=== PATIENT | female | born 1990 | race Caucasian/White ===

== ENCOUNTER → 2016-10-07 | Outpatient (CLI) | payer OTHER ==
[2016-10-07 10:55] LABS: Basophils % (A) 1 %; CH 27.5; CHCM 33.1; Eosinophils # (A) 0.1 k/uL (0-0.7); Eosinophils % (A) 1 %; HCT 46.5 % (34.0-46.0); HDW 2.27; HGB 15.2 gm/dL (11.4-16.0); Luc # (Auto) 0.21; Luc % (Auto) 3; Lymphocytes # (A) 1.8 k/uL (1.0-4.8); Lymphocytes % (A) 27 %; MCH 27.4 pg (25.0-35.0); MCHC 32.7 g/dL (31.0-37.0); MCV 83.7 fL (80.0-100.0); Mean Platelet Volume 8.1; Monocytes # (A) 0.6 k/uL (0-1.0); Monocytes % (A) 9 %; Neutrophils # (A) 3.9 k/uL (1.3-7.7); Neutrophils % (A) 59 %; RBC 5.56 m/uL (3.80-5.40); RDW 12.5 % (11.5-15.5); WBC 6.6 k/uL (3.8-10.6); WBC (Perox) 6.61
[2016-10-07 11:07] LABS: ALT 21 U/L (9-52); AST 17 U/L (14-36); Alkaline Phosphatase 36 U/L (38-126); Anion Gap 8 mmol/L; Blood Urea Nitrogen 8 mg/dL (7-17); Calcium 9.4 mg/dL (8.4-10.2); Carbon Dioxide 27 mmol/L (22-30); Chloride 106 mmol/L (98-107); Creatine Kinase 40 U/L (30-135); Glucose 104 mg/dL (74-99); Non-African American GFR(MDRD) >60 (>60 ml/min/1.73 sqM); Potassium 4.6 mmol/L (3.5-5.1); Sodium 141 mmol/L (137-145); Total Bilirubin 0.5 mg/dL (0.2-1.3); Total Protein 7.2 g/dL (6.3-8.2)
[2016-10-07 13:16] LABS: Erythrocyte Sedimentation Rate 5 mm/hr (0-20)
== END ==
LOC: LABWHC1 10:27
PROVIDERS: ATTEND Internal Medicine Critical Care Medicine
DX: D86.9 Sarcoidosis, unspecified (principal)
CPT/HCPCS: 36415; 80053; 82164; 82550; 85025; 85652

== ENCOUNTER 2018-03-05 15:03 | Emergency (ER) | payer OTHER ==
[2018-03-05 15:08] VITALS: BP 117/76; PULSE 67; RESP 16; TEMP 97.3
--- NOTE | 2018-03-05 15:43 | ED ---
General Adult HPI - General Chief complaint: ENT Stated complaint: Sore throat Time Seen by Provider: 03/05/18 15:22 Source: patient, RN notes reviewed Mode of arrival: ambulatory Limitations: no limitations - History of Present Illness Initial comments: 27-year-old female presents to the emergency department for a chief complaint of sore throat 2 days. Patient states it is painful to swallow. She denies any difficulty swallowing or eating/drinking. Patient admits to postnasal drip but denies any nasal congestion. Patient denies any ear pain or headaches. Patient does admit to slight cough. She states it is an intermittent, dry cough and denies coughing up mucus. She does have a history of sarcoidosis. Patient is a smoker. She denies history of asthma. Patient denies any shortness of breath. Patient denies any fevers or chills at home. Patient has no other complaints at this time including shortness of breath, chest pain, abdominal pain, nausea or vomiting, headache, or visual changes. - Related Data Home Medications Medication Instructions Recorded Confirmed Ibuprofen [Motrin Ib] 600 - 800 mg PO Q6H PRN 03/05/18 03/05/18 Previous Rx's Medication Instructions Recorded guaiFENesin [Mucinex] 600 mg PO Q12H PRN #20 tab.er.12h 03/05/18 Allergies Allergy/AdvReac Type Severity Reaction Status Date / Time latex Allergy Rash/Hives Verified 03/05/18 15:47 Penicillins Allergy Swelling Verified 03/05/18 15:47 lidocaine AdvReac Rapid Verified 03/05/18 15:47 Heart Rate Review of Systems ROS Statement: Those systems with pertinent positive or pertinent negative responses have been documented in the HPI. ROS Other: All systems not noted in ROS Statement are negative. Past Medical History Past Medical History: Asthma, GERD/Reflux, Osteoarthritis (OA), Renal Disease Additional Past Medical History / Comment(s): sarcoidosis, epigastric pain & nausea History of Any Multi-Drug Resistant Organisms: None Reported Past Surgical History: Section Additional Past Surgical History / Comment(s): lymph node biopsy, colonoscopy Past Anesthesia/Blood Transfusion Reactions: No Reported Reaction Past Psychological History: Anxiety Smoking Status: Current every day smoker Past Alcohol Use History: Occasional Past Drug Use History: None Reported General Exam Limitations: no limitations General appearance: alert, in no apparent distress (Patient is well-appearing, sitting up in chair in hallway. She is pleasant and cooperative.) Head exam: Present: atraumatic, normocephalic, normal inspection Eye exam: Present: normal appearance, PERRL, EOMI. Absent: scleral icterus, conjunctival injection, periorbital swelling, periorbital tenderness ENT exam: Present: normal exam, mucous membranes moist, TM's normal bilaterally (non erythematous), normal external ear exam. Absent: normal oropharynx (non erythematous oropharynx, no tonsillar exudates noted bilat, uvula midline, mild nasal drainage noted in throat) Neck exam: Present: normal inspection, full ROM, lymphadenopathy (mild tender anterior cerivcal LN noted). Absent: tenderness, meningismus Respiratory exam: Present: normal lung sounds bilaterally. Absent: respiratory distress, wheezes, rales, rhonchi, stridor Cardiovascular Exam: Present: regular rate, normal rhythm, normal heart sounds. Absent: systolic murmur, diastolic murmur, rubs, gallop, clicks Extremities exam: Present: full ROM (moving all extremities without difficulty.) Neurological exam: Present: alert, oriented X3, CN II-XII intact, normal gait, other (speech normal). Absent: motor sensory deficit (no gross motor sensory deficit) Psychiatric exam: Present: normal affect, normal mood Skin exam: Present: warm, dry, intact, normal color. Absent: rash Course Vital Signs 03/05/18 15:06 Temperature 97.3 F L Pulse Rate 67 Respiratory 16 Rate Blood Pressure 117/76 O2 Sat by Pulse 100 Oximetry Medical Decision Making - Medical Decision Making 27-year-old female since to the emergency department for a chief complaint of sore throat 2 days. Patient states it is painful to swallow but she does not have any difficulty swallowing solids or liquids. No fevers or chills at home. Patient admits to postnasal drip, denies nasal congestion. Patient admits to a mild intermittent cough. She does have a history of sarcoidosis and is a smoker. I did recommend a chest x-ray to rule out pneumonia as patient is a smoker with a cough. Patient refuses x-ray at this time as she states cough is intermittent and nonproductive. She states she would rather return to the emergency department for an x-ray to rule out pneumonia if symptoms worsen. On exam lungs are clear to auscultation bilaterally. Patient has a non- erythematous oropharynx without petechiae or tonsillar exudates. Uvula midline. Postnasal drainage noted. Strep was negative. Culture will be sent. Discussed patient likely has a viral infection as she has had symptoms for 2 days without fever. Sore throat could be due to postnasal drip so patient will be given Mucinex. Patient denies any chance of . Patient aware to return to the emergency department for a chest x-ray if symptoms worsen. She will follow up with primary care in 1-2 days. - Lab Data Lab Results 03/05/18 Range/Units 15:37 Group A Strep Rapid Negative (Negative) Disposition Clinical Impression: Sore throat Disposition: HOME SELF-CARE Condition: Good Instructions: Strep Throat (ED) Additional Instructions: Please take Mucinex as directed for congestion. Please follow-up with primary care in 1-2 days. Please return to the emergency department if you have any worsening symptoms such as increased cough, fever, or any other additional concerns. Prescriptions: guaiFENesin [Mucinex] 600 mg PO Q12H PRN #20 tab.er.12h PRN Reason: Congestion Is patient prescribed a controlled substance at d/c from ED?: No Referrals: Noah Stout DO [Primary Care Provider] - 1-2 days Time of Disposition: 16:14
== END 2018-03-05 16:20 | disposition home or self-care (01) ==
LOC: EC 15:03
DX: J02.9 Acute pharyngitis, unspecified (principal); R09.82 Postnasal drip; F17.200 Nicotine dependence, unspecified, uncomplicated; Z88.0 Allergy status to penicillin; Z88.4 Allergy status to anesthetic agent; Z91.040 Latex allergy status
CPT/HCPCS: 87081; 87430; 99283

== ENCOUNTER → 2019-11-16 | Outpatient (CLI) | payer OTHER ==
[2019-11-16 15:41] LABS: Basophils % (A) 0 %; Eosinophils # (A) 0.1 k/uL (0-0.7); Eosinophils % (A) 1 %; HCT 43.9 % (34.0-46.0); HGB 13.7 gm/dL (11.4-16.0); Lymphocytes # (A) 2.5 k/uL (1.0-4.8); Lymphocytes % (A) 29 %; MCH 26.7 pg (25.0-35.0); MCHC 31.1 g/dL (31.0-37.0); MCV 85.8 fL (80.0-100.0); Mean Platelet Volume 9.3; Monocytes # (A) 0.5 k/uL (0-1.0); Monocytes % (A) 6 %; Neutrophils # (A) 5.5 k/uL (1.3-7.7); Neutrophils % (A) 63 %; Platelet Count 158 k/uL (150-450); RBC 5.11 m/uL (3.80-5.40); RDW 12.9 % (11.5-15.5); WBC 8.7 k/uL (3.8-10.6)
[2019-11-16 18:43] LABS: Erythrocyte Sedimentation Rate 2 mm/hr (0-20)
[2019-11-17 00:49] LABS: T4, Free (Free Thyroxine) 1.2 ng/dL (0.80-1.80)
[2019-11-17 01:00] LABS: African American GFR (CKD) 133.8 (60.0-200.0); Albumin 4.3 g/dL (3.80-4.90); Albumin/Globulin Ratio 2.15 (1.60-3.17); Anion Gap 7.3 mmol/L (4.00-12.00); BUN/Creat Ratio 18.57 Ratio (12.00-20.00); Calcium 9.1 mg/dL (8.7-10.3); Carbon Dioxide 24.7 mmol/L (21.6-31.8); Non-African American GFR(CKD) 115.4 (60.0-200.0); Total Bilirubin 0.6 mg/dL (0.2-1.2); Total Protein 6.3 g/dL (6.2-8.2)
== END | disposition home or self-care (01) ==
LOC: LABWHC1 15:00
PROVIDERS: ATTEND Internal Medicine Critical Care Medicine
DX: D86.9 Sarcoidosis, unspecified (principal)
CPT/HCPCS: 36415; 80053; 82164; 82550; 84439; 84443; 85025; 85652

== ENCOUNTER → 2020-10-21 | Outpatient (CLI) | payer OTHER ==
--- NOTE | 2020-10-21 16:02 | US ---
EXAMINATION TYPE: US kidneys/renal and bladder DATE OF EXAM: 10/21/2020 COMPARISON: NONE CLINICAL HISTORY: D86.0 Sarcoidosis of lung. EXAM MEASUREMENTS: Right Kidney: 11.0 x 3.4 x 3.9 cm Left Kidney: 10.7 x 4.5 x 3.7 cm Right Kidney: thin cortex mid/lower pole Left Kidney: no evidence of hydronephrosis Bladder: appears wnl Bilateral Jets seen: no IMPRESSION: 1. No acute changes. 2. Some thinning of the right kidney cortex could suggest some developing chronic renal failure or pr ior infarct.
== END | disposition home or self-care (01) ==
LOC: RADUSWWP 15:16
PROVIDERS: ATTEND Internal Medicine Nephrology
DX: D86.0 Sarcoidosis of lung (principal)
CPT/HCPCS: 76770

== ENCOUNTER 2022-06-23 14:33 | Emergency (ER) | payer BC, OTHER ==
--- NOTE | 2022-06-23 14:37 | ED ---
Upper Extremity HPI <Modesta Hassan - Last Filed: 06/23/22 16:57> <Stephon Hanson - Last Filed: 06/23/22 18:33> <Rolo Hayes - Last Filed: 06/23/22 22:48> - General Chief Complaint: Extremity Injury, Upper Stated Complaint: rt wrist injury - History of Present Illness Initial Comments: Patient is a 31-year-old female presenting to the emergency room with right wrist pain after slipping and falling catching herself with her right wrist. She immediately had pain in her right wrist with deformity and range of motion impairment along with swelling to the anterior aspect of her hand. She denies any head trauma or trauma to any other extremity. She is not on blood thinners. Denies any loss of consciousness prior to or after the fall. She denies any dizziness or headache. She is past medical history significant for asthma, sarcoidosis, renal impairment and GERD. (Modesta Hassan) - Related Data Home Medications Medication Instructions Recorded Confirmed Ibuprofen [Motrin Ib] 600 - 800 mg PO Q6H PRN 03/05/18 03/05/18 Previous Rx's Medication Instructions Recorded guaiFENesin [Mucinex] 600 mg PO Q12H PRN #20 tab.er.12h 03/05/18 traMADol HCl [Ultram] 50 mg PO Q8HR PRN 3 Days #9 tab 06/23/22 Allergies Allergy/AdvReac Type Severity Reaction Status Date / Time latex Allergy Rash/Hives Verified 06/23/22 15:10 Penicillins Allergy Swelling Verified 06/23/22 15:10 lidocaine AdvReac Rapid Verified 06/23/22 15:10 Heart Rate Review of Systems ROS Other: All systems not noted in ROS Statement are negative. <Modesta Hassan - Last Filed: 06/23/22 16:57> ROS Other: All systems not noted in ROS Statement are negative. <Stephon Hanson - Last Filed: 06/23/22 18:33> ROS Other: All systems not noted in ROS Statement are negative. <Rolo Hayes - Last Filed: 06/23/22 22:48> ROS Statement: Those systems with pertinent positive or pertinent negative responses have been documented in the HPI. Past Medical History Past Medical History: Asthma, GERD/Reflux, Osteoarthritis (OA), Renal Disease Additional Past Medical History / Comment(s): sarcoidosis, epigastric pain & nausea History of Any Multi-Drug Resistant Organisms: None Reported Past Surgical History: Section Additional Past Surgical History / Comment(s): lymph node biopsy, colonoscopy Past Anesthesia/Blood Transfusion Reactions: No Reported Reaction Past Psychological History: Anxiety Past Alcohol Use History: Occasional Past Drug Use History: None Reported <Modesta Hassan - Last Filed: 06/23/22 16:57> General Exam <Modesta Hassan - Last Filed: 06/23/22 16:57> - General Exam Comments Initial Comments: GENERAL: No acute distress, well developed, well nourished. HEENT: Normocephalic, atraumatic. Pupils equal, round, reactive to light. Moist mucous membranes. LUNGS: No respiratory distress or use of accessory muscles. HEART: Regular rate.. ABDOMEN: Non-distended. BACK: Normal inspection. EXTREMITIES: Right wrist with deformity, swelling and tenderness with range of motion impairment good capillary refill and +2 radial pulse. NEUROLOGIC: Alert & oriented x 3. CN II-XII grossly intact. PSYCHIATRIC: Normal affect and behavior. DERMATOLOGIC: Skin intact, without rashes or lesions noted. (Modesta Hassan) Course Vital Signs 06/23/22 06/23/22 06/23/22 15:07 16:41 16:45 Temperature 97.9 F Pulse Rate 96 106 H 77 Respiratory 16 16 16 Rate Blood Pressure 111/55 121/97 121/75 O2 Sat by Pulse 98 99 98 Oximetry 06/23/22 06/23/22 06/23/22 16:50 16:55 17:10 Temperature Pulse Rate 66 98 62 Respiratory 14 14 16 Rate Blood Pressure 120/80 123/69 118/80 O2 Sat by Pulse 98 98 98 Oximetry 06/23/22 06/23/22 06/23/22 17:25 17:40 17:55 Temperature Pulse Rate 60 62 63 Respiratory 16 16 16 Rate Blood Pressure 118/72 115/67 108/65 O2 Sat by Pulse 98 98 98 Oximetry 06/23/22 06/23/22 06/23/22 18:25 18:55 20:18 Temperature 98.0 F Pulse Rate 60 68 64 Respiratory 16 16 16 Rate Blood Pressure 108/71 113/73 118/80 O2 Sat by Pulse 99 99 98 Oximetry Procedures - Procedural Sedation *Procedural Sedation Start Time: 16:41 *Procedural Sedation Stop Time: 17:12 *Indications: fracture/dislocation reduction *Previous Adverse Reaction to Anesthesia/Sedation?: No * Testing Complete?: Yes *ASA Class: I *Mallampati Airway Score: 1 *Time of Last PO Intake: 12:00 Preparation: monitor technician applied, pulse oximeter, capnometry used, supplemental O2 applied, suction/airway equipment at bedside, IV secured IV Propofol Dose (mgs): 200 Complications: none Patient Tolerated Procedure: well <Stephon Hanson - Last Filed: 06/23/22 18:33> Disposition Is patient prescribed a controlled substance at d/c from ED?: No <Modesta Hassan - Last Filed: 06/23/22 16:57> <Stephon Hanson - Last Filed: 06/23/22 18:33> Is patient prescribed a controlled substance at d/c from ED?: Yes When asked, does pt state using other controlled substances?: Yes If prescribed controlled substance>3 days was MAPS reviewed?: Prescribed <3 Days If opioid is for acute pain is fill amount 7 days or less?: Yes Time of Disposition: 20:00 <Rolo Hayes - Last Filed: 06/23/22 22:48> Clinical Impression: Fracture, radius, Fracture of wrist Disposition: HOME SELF-CARE Instructions (If sedation given, give patient instructions): Wrist Fracture in Adults (ED), Moderate Sedation (ED), Procedural Sedation (ED) Additional Instructions: Please maintain cast placement. Follow-up with orthopedic provider. Conscious sedation was given today is recommended that he donate any major decisions and do not drive an automobile for the remainder of the day. Please utilize ibuprofen or Tylenol [id number] as needed for pain. Please return to the Emergency Department if symptoms worsen or any other concerns. Elevate right upper extremity Keep cast clean dry and intact. Do not remove. Avoid rigorous use of right upper extremity. May do small manipulation less than 2 pounds with right hand Prescriptions: traMADol HCl [Ultram] 50 mg PO Q8HR PRN 3 Days #9 tab PRN Reason: Severe Pain (Scale 7 To 10) Referrals: Cihnedu Solis MD [Primary Care Provider] - 1-2 days Renata La DO [Doctor of Osteopathic Medicine] - 1-2 days
--- NOTE | 2022-06-23 15:18 | XR ---
EXAMINATION TYPE: XR wrist complete RT DATE OF EXAM: 06/23/2022 COMPARISON: None HISTORY: Fall, pain TECHNIQUE: One view right wrist FINDINGS: There is a transverse fracture of the distal metaphyseal radius. There may be some impactio n of the radius on the distal portion of the fracture fragment. There is dorsal angulation of the dis marcie fracture fragment. No additional fractures are evident. Joint spaces are otherwise preserved. Soft tissue swelling is pr esent. Follow up exams can be performed 710 days acute trauma for continued or unaccounted for pain. Nuclea r medicine bone scan could be performed if there is clinical suspicion for scaphoid fracture. IMPRESSION: 1. Impacted distal metaphyseal radial fracture with dorsal angulation of the distal fracture fragmen t. Overlying soft tissue swelling is present.
[2022-06-23] MEDS ORDERED: MORPHINE SULFATE 2 MG/ML SYRINGE IM STA (15:47)
[2022-06-23] MEDS ORDERED: PROPOFOL 10 MG/ML 20 ML VIAL IV ONE ×2 (16:21→16:42)
[2022-06-23] MEDS ORDERED: MORPHINE SULFATE 4 MG/ML SYRINGE IVP STA (17:17)
--- NOTE | 2022-06-23 17:18 | P.CNOR ---
History of Present Illness - [facility] Consult date: 06/23/22 Consult reason: fracture History of present illness: Patient has very pleasant 31-year-old female who seen and examined in the emergency room at bedside. Patient is right-hand dominant Thao active female who was coming down a flight of stairs and fell onto her rear end and to her outstretched right arm. She had sudden acute pain at her right wrist. She denies loss of consciousness. She denies other injuries. She denies neck pain denies hip pain denies leg pain. Her only points of pain or at her right wrist. She denies numbness tingling. She is normally right hand dominant and has never had any issues with her right arm in the past. She denies any history of any other fractures. She denies any other current injuries. She admits to history of sarcoidosis and asthma. 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 Review of Systems As per operative note. Denies any chest pain short of breath. Denies a nausea vomiting or abdominal pain. Denies any particular weakness. She denies prior problems with her right arm. Denies any other pains. Denies any neck pain. Past Medical History Past Medical History: Asthma, GERD/Reflux, Osteoarthritis (OA), Renal Disease Additional Past Medical History / Comment(s): sarcoidosis, epigastric pain & nausea History of Any Multi-Drug Resistant Organisms: None Reported Past Surgical History: Section Additional Past Surgical History / Comment(s): lymph node biopsy, colonoscopy Past Anesthesia/Blood Transfusion Reactions: No Reported Reaction Past Psychological History: Anxiety Past Alcohol Use History: Occasional Past Drug Use History: None Reported Medications and Allergies Home Medications Medication Instructions Recorded Confirmed Type Ibuprofen [Motrin Ib] 600 - 800 mg PO Q6H PRN 03/05/18 03/05/18 History guaiFENesin [Mucinex] 600 mg PO Q12H PRN #20 tab.er.12h 03/05/18 Rx traMADol HCl [Ultram] 50 mg PO Q8HR PRN 3 Days #9 tab 06/23/22 Rx Allergies Allergy/AdvReac Type Severity Reaction Status Date / Time latex Allergy Rash/Hives Verified 06/23/22 15:10 Penicillins Allergy Swelling Verified 06/23/22 15:10 lidocaine AdvReac Rapid Verified 06/23/22 15:10 Heart Rate Physical Examination Osteopathic Statement: *. No significant issues noted on an osteopathic structural exam other than those noted in the History and Physical/Consult. - Wrist & Hand right Location of pain: dorsal wrist (At her right wrist there is no open wounds lacerations or abrasions. She has obvious dinner fork deformity. She is tender to palpation at her wrist. She has sensation intact in her fingers. She has good motion in her fingers. Capillary refill less than 2 seconds. Compartments are soft througho), volar wrist (Compartments are soft throughout. No pain at her elbow or shoulder. Her left upper extremity and bilateral lower extremity no pain with active and passive range of motion. Neck and back nontender to palpation range of motion. HEENT atraumatic) Results - Diagnostic results Wrist/Hand x-ray: report reviewed, image reviewed (X-rays of right wrist show obvious deformity with dorsal angulation about 60 with shortening and about 50% displacement there is some lucency around the waist of the scaphoid) Assessment and Plan Assessment: Acute traumatic right wrist distal radius fracture with displacement and angulation and comminution , status post fall Lucency at the right scaphoid Right wrist pain due to fracture and fall without other evidence of injury History of sarcoidosis Plan: Acute traumatic right wrist distal radius fracture with displacement and angulation and comminution , status post fall Lucency at the right scaphoid Right wrist pain due to fracture and fall without other evidence of injury History of sarcoidosis The patient has a new fracture at her distal radius with displacement and some mild comminution area and is dorsally angulate and shortened. There is no evidence of any open lacerations or abrasions and she has a closed neurovascularly intact this radius fracture. There is some lucency at her scaphoid as well. I think that she can do well with closed reduction here in the emergency room with conscious sedation. She may need further treatment or intervention with surgical stabilization if the fracture does not hold her if there is recurrent displacement after closed reduction. I discussed this with her at length. I discussed the risk of her injury as well as the fact that t here are various treatment options ranging from close to surgical intervention. We discussed the risk of constipation and closed treatment here in the emergency room today I answered her questions best my ability and she agrees to proceed. PROCEDURE NOTE In the emergency room today with the emergency room physician performing conscious sedation with propofol and monitoring was respiratory and nursing at bedside we're able to provide patient with conscious sedation after she signed informed consent. She had her airway and C-spine guarded and protected the entire time. When she was sedated as able perform gentle closed reduction technique and her distal radius on the right side. I was able to admitted late the fragments in good alignment and position. I placed a well-padded well mol ded short arm cast intact and postreduction x-rays were taken which showed excellent alignment position of the fracture with good return of length and radial inclination and angulation. The patient had good circulation her hand and fingers. She woke up well and she had good capillary refill and motion in her hands and fingers having tolerated the procedure well. The patient will be able to be discharged home when she is stable from the emergency room post conscious sedation. We'll plan to see her back closely in the next few days for recheck evaluation and follow-up. We did discuss the amber cency at her scaphoid and she will obtain a computed tomography scan of her wrist prior to discharge today with an further evaluate the scaphoid and the articular surface of the distal radius as well. I discussed this with the house staff and emergency room physician and they are all in agreement. Time with Patient: Greater than 30 (Consultation and procedure performed in the emergency room)
--- NOTE | 2022-06-23 17:18 | XR ---
EXAMINATION TYPE: XR wrist limited RT DATE OF EXAM: 06/23/2022 COMPARISON: NONE HISTORY: Post reduction TECHNIQUE: 2 views FINDINGS: Images through the cast show anatomic position of the transverse fracture of the distal rad ius. Carpal bones are intact. IMPRESSION: Anatomic reduction. No complicating process seen.
[2022-06-23 17:56] VITALS: RESP 16
[2022-06-23] MEDS ORDERED: ACET/COD 300 MG/30 MG STARTER PACK 6 TAB BTL PO STA (19:11)
[2022-06-23] MEDS ORDERED: MORPHINE SULFATE 4 MG/ML SYRINGE IM STA (20:04)
[2022-06-23 20:20] VITALS: BP 118/80; PULSE 64; TEMP 98
--- NOTE | 2022-06-23 20:35 | CT ---
EXAMINATION TYPE: CT wrist RT wo con DATE OF EXAM: 06/23/2022 COMPARISON: Right wrist x-rays earlier today HISTORY: Wrist Fx after pt fell down a flight of stairs. CT DLP: 252.5 mGycm Automated exposure control for dose reduction was used. FINDINGS: Overlying fiberglass cast material is now present. There is acute comminuted fracture of the distal r adial meta-epiphysis confirmed with several small fracture fragments seen best on axial images and in tra-articular extension of fracture noted seen best on sagittal images. No intra-articular bony fragm ents identified. Adjacent ulna is intact. The carpal joint spaces are preserved. Focal mild/moderate soft tissue swell ing at level of distal radius is noted. IMPRESSION: As above.
== END 2022-06-23 20:20 | disposition home or self-care (01) ==
LOC: EC 14:33
DX: S52.501A Unspecified fracture of the lower end of right radius, initial encounter for closed fracture (principal); J45.909 Unspecified asthma, uncomplicated; M19.90 Unspecified osteoarthritis, unspecified site; F41.9 Anxiety disorder, unspecified; Z88.0 Allergy status to penicillin; Z91.040 Latex allergy status; Z88.4 Allergy status to anesthetic agent; Z79.899 Other long term (current) drug therapy; W01.0XXA Fall on same level from slipping, tripping and stumbling without subsequent striking against object, initial encounter
CPT/HCPCS: 73100; 73110; 73200; 99284; 96374; 96372 ×2; 25605; 99152; 99153; J2270 ×2; J2704

== ENCOUNTER 2022-06-28 21:52 | Emergency (ER) | payer BC, OTHER ==
--- NOTE | 2022-06-28 22:09 | ED ---
Head Injury HPI - General Stated complaint: Fall, Head Injury - History of Present Illness Initial comments: Patient is a 31-year-old female who presents to the emergency department with a chief complaint of bump on head. Patient fell 5 days ago and broke her wrist. Patient states due to whiplash she didn't hit her head. She did not lose consciousness. No blood thinners use. No altered mental status, nausea, vomiting since the injury. Patient presents today with concern that she has a bump on the back left of her head. States it is somewhat tender to the touch. - Related Data Home Medications Medication Instructions Recorded Confirmed Ibuprofen [Motrin Ib] 600 - 800 mg PO Q6H PRN 03/05/18 03/05/18 Previous Rx's Medication Instructions Recorded guaiFENesin [Mucinex] 600 mg PO Q12H PRN #20 tab.er.12h 03/05/18 traMADol HCl [Ultram] 50 mg PO Q8HR PRN 3 Days #9 tab 06/23/22 Allergies/Adverse reactions: Allergies Allergy/AdvReac Type Severity Reaction Status Date / Time latex Allergy Rash/Hives Verified 06/23/22 15:10 Penicillins Allergy Swelling Verified 06/23/22 15:10 lidocaine AdvReac Rapid Verified 06/23/22 15:10 Heart Rate Review of Systems ROS Statement: Those systems with pertinent positive or pertinent negative responses have been documented in the HPI. ROS Other: All systems not noted in ROS Statement are negative. Past Medical History Past Medical History: Asthma, GERD/Reflux, Osteoarthritis (OA), Renal Disease Additional Past Medical History / Comment(s): sarcoidosis, epigastric pain & nausea History of Any Multi-Drug Resistant Organisms: None Reported Past Surgical History: Section Additional Past Surgical History / Comment(s): lymph node biopsy, colonoscopy Past Anesthesia/Blood Transfusion Reactions: No Reported Reaction Past Psychological History: Anxiety Past Alcohol Use History: Occasional Past Drug Use History: None Reported General Exam General appearance: alert, in no apparent distress Head exam: Present: normocephalic. Absent: normal inspection (small hemtoma left lower occipital region ) Respiratory exam: Present: normal lung sounds bilaterally. Absent: respiratory distress, wheezes, rales, rhonchi, stridor Cardiovascular Exam: Present: regular rate, normal rhythm, normal heart sounds. Absent: systolic murmur, diastolic murmur, rubs, gallop, clicks Neurological exam: Present: alert, oriented X3, CN II-XII intact Psychiatric exam: Present: normal affect, normal mood Skin exam: Present: warm, dry, intact, normal color. Absent: rash Course Vital Signs 06/28/22 22:13 Temperature 98 F Pulse Rate 83 Respiratory 16 Rate Blood Pressure 121/75 O2 Sat by Pulse 98 Oximetry Medical Decision Making - Medical Decision Making Was pt. sent in by a medical professional or institution (JOSE Camacho, BUILDING SERVICES TECHNICIAN, urgent care, hospital, or custodial...) When possible be specific @ -[No] Did you speak to anyone other than the patient for history (EMS, parent, family, police, friend...)? What history was obtained from this source @ -[No] Did you review nursing and triage notes (agree or disagree)? Why? @ -[I reviewed and agree with nursing and triage notes] Were old charts reviewed (outside hosp., previous admission, EMS record, old EKG, old radiological studies, urgent care reports/EKG's, custodial records)? Report findings @ -[No old charts were reviewed] Differential Diagnosis (chest pain, altered mental status, abdominal pain women, abdominal pain men, vaginal bleeding, weakness, fever, dyspnea, syncope, headache, dizziness, GI bleed, back pain, seizure, CVA, palpatations, mental health)? @ -skull fracture, soft tissue injury, hematoma EKG interpreted by me (3pts min.). @ -[As above] X-rays interpreted by me (1pt min.). @ -[None done] CT interpreted by me (1pt min.). @ -[None done] U/S interpreted by me (1pt. min.). @ -[None done] What testing was considered but not performed or refused? (CT, X-rays, U/S, labs)? Why? @ -[None] What meds were considered but not given or refused? Why? @ -[None] Did you discuss the management of the patient with other professionals (professionals i.e. JOSE Camacho, BUILDING SERVICES TECHNICIAN, lab, RT, psych nurse, geriatric social work professor, c.o.d. biller, teacher, commercial account officer, showcase maker)? Give summary @ -[No] Was smoking cessation discussed for >3mins.? @ -[No] Was critical care preformed (if so, how long)? @ -[No] Were there social determinants of health that impacted care today? How? (Homelessness, low income, unemployed, alcoholism, drug addiction, transportation, low edu. Level, literacy, decrease access to med. care, fdc, rehab)? @ -[No] Was there de-escalation of care discussed even if they declined (Discuss DNR or withdrawal of care, Hospice)? DNR status @ -[No] What co-morbidities impacted this encounter? (DM, HTN, Smoking, COPD, CAD, Cancer, CVA, ARF, Chemo, Hep., AIDS, mental health diagnosis, sleep apnea, morbid obesity)? @ -[None] Was patient admitted / discharged? Hospital course, mention meds given and route, prescriptions, significant lab abnormalities, going to OR and other pertinent info. @ -This is a 31-year-old female presenting 5 days after fall with concern for bump on her head. Patient has small hematoma of the left occipital scalp. Patient educated and reassured. Undiagnosed new problem with uncertain prognosis? @ -[No] Drug Therapy requiring intensive monitoring for toxicity (Heparin, Nitro, Insulin, Cardizem)? @ -[No] Were any procedures done? @ -[No] Diagnosis/symptom? @ -Hematoma Acute, or Chronic, or Acute on Chronic? @ Acute Uncomplicated (without systemic symptoms) or Complicated (systemic symptoms)? @ -[default] Side effects of treatment? @ -[No] Exacerbation, Progression, or Severe Exacerbation? @ -[No] Poses a threat to life or bodily function? How? (Chest pain, USA, LA, pneumonia, PE, COPD, DKA, ARF, appy, cholecystitis, CVA, Diverticulitis, Homicidal, Suicidal, threat to staff... and all critical care pts) @ -[No] Dr. Hanson is my attending Disposition Clinical Impression: Hematoma, Fall Disposition: HOME SELF-CARE Condition: Good Instructions (If sedation given, give patient instructions): Hematoma (ED) Additional Instructions: Apply cold and/or warm compresses to hematoma to decrease swelling. Use of ant i-inflammatory medication will also help swelling and pain. Follow-up with primary care provider in one to 2 days. Return to the emergency department experience new, concerning, or worsening symptoms. Is patient prescribed a controlled substance at d/c from ED?: No Referrals: Chinedu Solis MD [Primary Care Provider] - 1-2 days
[2022-06-28 22:26] VITALS: BP 121/75; PULSE 83; RESP 16; TEMP 98
== END 2022-06-28 22:33 | disposition home or self-care (01) ==
LOC: EC 21:52
DX: S00.93XA Contusion of unspecified part of head, initial encounter (principal); J45.909 Unspecified asthma, uncomplicated; M19.90 Unspecified osteoarthritis, unspecified site; F41.9 Anxiety disorder, unspecified; Z91.040 Latex allergy status; Z88.0 Allergy status to penicillin; Z79.1 Long term (current) use of non-steroidal anti-inflammatories (NSAID); Z88.4 Allergy status to anesthetic agent; W18.30XA Fall on same level, unspecified, initial encounter
CPT/HCPCS: 99283

== ENCOUNTER → 2022-11-09 | Outpatient (CLI) | payer BC, OTHER ==
--- NOTE | 2022-11-09 14:45 | CT ---
EXAMINATION TYPE: CT wrist RT wo con CT DLP: 176.40 mGycm, Automated exposure control for dose reduction was used. DATE OF EXAM: 11/09/2022 1:09 PM COMPARISON: . 06/23/2022 CLINICAL INDICATION:Female, 32 years old with history of M25.531; PHH, Prior RT wrist fracture. C/O p ain and limitation with flexion/extension TECHNIQUE: Axial images were obtained of the right wrist . Additional coronal and sagittal reformatt ed images and soft tissue and bone window were obtained for review. Contrast used: None Oral contrast used: None FINDINGS: Interval healing changes of the distal radius fracture as seen on prior. There remains fracture lines present which do not demonstrate complete union. This is best appreciated on series 6 image 38 and s eries 3 image 49. No new fractures are visualized. Remainder of the osseous structures appear intact. No radiopaque foreign bodies. No soft tissue abnormality visualized. IMPRESSION: Healing changes from prior CT however there remains nonunion of multiple fracture fragments.. No new fractures are visualized
== END | disposition home or self-care (01) ==
LOC: RADCTMAIN 12:25
PROVIDERS: ATTEND Orthopaedic Surgery Hand Surgery
DX: S52.501D Unspecified fracture of the lower end of right radius, subsequent encounter for closed fracture with routine healing (principal)

== ENCOUNTER 2023-01-12 10:53 | Day surgery (SDC) | payer BC, OTHER ==
[2023-01-07 10:00] VITALS: BMI 22.4
--- NOTE | 2023-01-11 12:31 | P.HPOR ---
History of Present Illness H&P Date: 01/11/23 Subjective: This is a 32 year old female that presents today for follow up evaluation regarding a right wrist injury that occurred on 06/23/2022. She presents today for second opinion. She was originally seen by Dr. Louis at [facility] for her initial injury and underwent closed reduction and immobilization in the emergency department for her displaced right intra-articular distal radius fracture. She states she was closely followed over the next several months while remaining in her cast with serial x-rays. She states around 2 months after her day of injury she was notified that the fracture had moved and was referred to Dr. La at [facility] at that time. MRI was obtained at that time revealing a healing distal radius fracture and some fraying of the TFCC. Patient presents today with continued pain and limited range of motion, specifically with flexion of her wrist about 6 months out from her fracture. She works in a [employer] and is right-hand dominant. Physical Examination: RUE: AIN/PIN/Radial/Ulnar/Median motor intact. Radial/Ulnar/Median SILT. 2+/4 Radial/Ulnar pulses palpated. 5/5 APB, 5/5 FDI. Negative Finkelsteins, negative CMC grind, negative Durkan's compression. Wrist flexion 45, wrist extension, 80. Full pronation, supination. Imaging: X-Rays of the right wrist, 3 view reviewed from prior office today demonstrate a right distal radius malunion with a residual 28 of dorsal angulation and 3.5 mm of radial shortening. CT of the right wrist reviewed from 11/09/2022 demonstrates right intra- articular distal radius malunion with residual dorsal angulation of 30. No appreciable articular step-off. Impression: 1.) Right distal radius malunion. Plan: Diagnosis and treatment options were discussed with the patient. The complexity of her injury was discussed with the patient now that she is 6 months out and her distal radius fracture is healed in a malunited position with a residual 30 of dorsal angulation on imaging today and 3.5 mm radial shortening. Currently, she has a smooth arc of motion of her wrist with now increasing pain on the dorsal aspect of the wrist and limited flexion compared to her contralateral side. We discussed continued conservative treatment versus distal radius malunion osteotomy. Due to her age of 32, and this being her dominant hand we discussed she is a candidate for distal radius malunion osteotomy. We discussed this would mainly be performed with a goal of increasing her flexion which is significantly limited due to the residual dorsal angulation present on exam. She has thought about her options more and would like to pursue right distal radius malunion corrective osteotomy with bone allograft. Risks and benefits of surgery including bleeding, infection, damage to surrounding tissue, need for further surgery, residual numbness were discussed and the patient wished to go forward with surgery. She may continue to be off work until surgery followed by 6 to 8 weeks off of work post operatively. The patient was agreeable with this plan. CC: Clif Solis M.D. -Graham Eric DO Orthopedic Hand/Upper Extremity Surgeon Past Medical History Past Medical History: Asthma, GERD/Reflux, Osteoarthritis (OA), Renal Disease, Skin Disorder Additional Past Medical History / Comment(s): Sarcoidosis Hx migraines, none in last few yrs. Skin irritaion, dry scalp, skin lsesions from Sarcoidosos. "Kidneys thinned on outside, no change since 2012". History of Any Multi-Drug Resistant Organisms: None Reported Past Surgical History: Section Additional Past Surgical History / Comment(s): Lymph node biopsy, colonoscopy. Past Anesthesia/Blood Transfusion Reactions: Motion Sickness Past Psychological History: Anxiety Smoking Status: Current every day smoker Past Alcohol Use History: Occasional Additional Past Alcohol Use History / Comment(s): Smokes 10 cigarettes daily, started at age 18. Past Drug Use History: None Reported Additional Drug Use History / Comment(s): Occasional Marijuana use. Aware no use 24 hrs prior to procedure. - Past Family History Mother Family Medical History: COPD Additional Family Medical History / Comment(s): Lung issues, , may have had blood clots, but unsure. Medications and Allergies Home Medications Medication Instructions Recorded Confirmed Type No Known Home Medications 01/07/23 01/07/23 History Allergies Allergy/AdvReac Type Severity Reaction Status Date / Time latex Allergy Rash/Hives Verified 01/07/23 09:36 Penicillins Allergy Swelling Verified 01/07/23 09:36 lidocaine AdvReac Rapid Verified 01/07/23 09:36 Heart Rate Physical Examination Osteopathic Statement: *. No significant issues noted on an osteopathic structural exam other than those noted in the History and Physical/Consult.
[~2023-01-12 10:53] MED LIST: DEXAMETHASONE SOD PHOSPHATE 4 MG/ML 1 ML VIAL IV ONE; HYDROmorphone 0.5 MG/0.5 ML SYRINGE IVP PRN; LACTATED RINGERS 1,000 ML IV SCH; ONDANSETRON 4 MG/2 ML VIAL IVP ONE; SCOPOLAMINE 1 MG/72 HR PATCH TRANSDERM ONE; droPERidol 5 MG/2 ML VIAL IVP ONE
[2023-01-12 12:05] LABS: Basophils % (A) 0 %; Eosinophils # (A) 0.1 k/uL (0-0.7); Eosinophils % (A) 1 %; HCT 44.5 % (34.0-46.0); HGB 14.4 gm/dL (11.4-16.0); Lymphocytes # (A) 2.4 k/uL (1.0-4.8); Lymphocytes % (A) 28 %; MCHC 32.4 g/dL (31.0-37.0); MCV 86.6 fL (80.0-100.0); Mean Platelet Volume 9.5; Monocytes # (A) 0.6 k/uL (0-1.0); Monocytes % (A) 7 %; Neutrophils # (A) 5.2 k/uL (1.3-7.7); Neutrophils % (A) 62 %; Platelet Count 185 k/uL (150-450); RBC 5.14 m/uL (3.80-5.40); WBC 8.3 k/uL (3.8-10.6)
[2023-01-12 12:30] LABS: ALT 14 U/L (4-34); AST 19 U/L (14-36); African American GFR (CKD) >90 (>60 ml/min/1.73 sqM); Albumin 3.8 g/dL (3.5-5.0); Alkaline Phosphatase 41 U/L (38-126); Anion Gap 5 mmol/L; Blood Urea Nitrogen 10 mg/dL (7-17); Calcium 8.6 mg/dL (8.4-10.2); Carbon Dioxide 26 mmol/L (22-30); Chloride 106 mmol/L (98-107); Glucose 95 mg/dL (74-99); Non-African American GFR(CKD) >90 (>60 ml/min/1.73 sqM); Potassium 4.1 mmol/L (3.5-5.1); Sodium 137 mmol/L (137-145); Total Bilirubin 0.4 mg/dL (0.2-1.3); Total Protein 6.5 g/dL (6.3-8.2)
[2023-01-12] MEDS ORDERED: MIDAZOLAM 2 MG/2 ML VIAL IVP ONE (12:36)
[2023-01-12] MEDS ORDERED: LIDOCAINE 2% INJ 20 MG/ML (2 ML VIAL) ONE (12:49)
[2023-01-12] MEDS ORDERED: fentaNYL (PF) 50 MCG/ML 2 ML AMP ONE (12:49)
[2023-01-12] MEDS ORDERED: ROPIVACAINE 5 MG/ML 30 ML VIAL ONE (12:49)
[2023-01-12] MEDS ORDERED: MIDAZOLAM 2 MG/2 ML VIAL ONE (12:49)
[2023-01-12] MEDS ORDERED: PROPOFOL 10 MG/ML 20 ML VIAL IV ONE (12:49)
--- NOTE | 2023-01-12 13:55 | P.ANPRN ---
Procedure Note - Anesthesia - Nerve Block Performed Right Supraclavicular Time Out Performed: Yes (12:35) Date of Procedure: 01/12/23 Procedure Start Time: :35 Procedure Stop Time: :41 Location of Patient: PreOp Indication: Acute Post-Operative Pain, Requested by Surgeon (Dr Eric) Sedation Type: Sedate with meaningful contact maintained Preparation: Sterile Prep Position: Supine Catheter: None Needle Types: Pajunk Needle Gauge: Other (see comment) (22g) Ultrasound used to visualize needle placement: Yes Ultrasound used to observe medication spread: Yes Injectate: 0.5% Ropivacaine (see comment for volume) (20cc) Blood Aspirated: No Pain Paresthesia on Injection Noted: No Resistance on Injection: Normal Image Stored and Saved: Yes Events: Uneventful and Well Tolerated
[2023-01-12] MEDS ORDERED: LACTATED RINGERS 1,000 ML IV ONE (14:33)
[2023-01-12 15:05] VITALS: TEMP 97.1
[2023-01-12 15:36] VITALS: RESP 16
[2023-01-12 15:48] VITALS: BP 103/59; PULSE 75
--- NOTE | 2023-01-12 16:04 | P.OP ---
Date of Procedure: 01/12/23 Preoperative Diagnosis: Right distal radius malunion Postoperative Diagnosis: Right distal radius malunion Procedure(s) Performed: Right distal radius malunion osteotomy Implants: Arthrex 3 hole volar locking plate, short. Anesthesia: [facility] Surgeon: Graham Eric Estimated Blood Loss (ml): 10 Pathology: none sent Condition: stable Disposition: PACU Description of Procedure: This is a 32 year old female who sustained a displaced intra-articular distal radius fracture in June of 2022 and went on to develop a symptomatic distal radius malunion with continued pain and limited range of motion. She presents today for corrective osteotomy of her distal radius malunion, Risks and benefits of surgery were discussed with the patient including bleeding, damage to surrounding tissue, infection, need for further surgery as well as risks of anes thesia including pulmonary embolism and even and the patient wished to proceed with surgical intervention. The patients was seen in the pre-operative area by myself. Consent and H&P were completed and updated. The correct extremity was marked in the pre-operative area by myself and all other questions were answered. Operative Narrative: The patient was brought to the operating room by the department of anesthesia. They remained on the portable stretcher and a rolling hand table was brought to the side of the operative extremity. Pre-operative time out was per formed indicating the correct patient, procedure and laterality. All in the room agreed. Pre-operative antibiotics were given prior to skin incision. The patient was then drifted off to sleep by the department of anesthesia. A nonsterile tourniquet was then applied to the operative extremity and the right upper extremity was then prepped and draped in normal sterile fashion. The operative extremity was the exsanguinated with an esmarch bandage and the tourniquet was inflated to 250mmHg. A longitudinal incision centered over the FCR tendon was made with a 15-blade scalpel. Blunt dissection was taken down to the FCR tendon sheath using Bovie cautery for meticulous hemostasis. The FCR sheath was opened with tenotomy scissors. The floor of the FCR sheath was then incised with a 15-blade scalpel and the FPL tendon and muscle belly was swept bluntly in an ulnar direction to reveal the pronator quadratus. Pronator quadratus was sharply incised with a 15-blade scalpel along the radial border of the distal radius, coming across transversely parallel to the joint at the level of the watershed line, radial artery was identified and protected. Brachioradialis was identified and relea sed while taking care to protect the first dorsal compartment tendons.Periosteal elevator was then used to elevate the pronator quadratus off the distal radius from a radial to ulnar fashion . A narrow width 3 hole Arthrex titanium volar locking distal radius plate was then placed on the distal radius under direct visualization and 2 of the center distal locking holes were drilled parallel in orientation to the residual malunion angulation and then filled with distal locking screws. Lengths were determined to be appropriate with placement of the screws being subchondral while the proximal portion of the plate was kickstanded. The 2 distal screws were then removed and holes were marked. A microsaggital saw was then utilized to perform an osteotomy parallel to the joint line. Henrry retractors were present radially/ulnarly to protect extensor tendons. Osteotome was utilized to finish the osteotomy taking care not to plunge into the dorsal extensor tendons. Completion of the osteotomy was performed. The plate was then placed back over the distal portion of the distal radius and the previously drilled holes were then filled with the distal locking screws and the remainder of the distal screws were drilled and filled. The plate was then kickstand back into place to restore volar tilt and a non-locking screws were drilled and filled proximally in the shaft. Final imaging was taken confirming extra-articular placement of distal screws at DRUJ and radiocarpal joint with congregation of anatomic volar tilt, radial height and inclination. The dorsal void was very small therefore decision was made to not go forward with bone grafting. The wound was then irrigated. Subcutaneous closure was performed with 4-0 monocryl followed by skin closure with 4-0 nylon suture. Sterile dressing consisting of adaptic, 4x4s, and a volar plaster splint was applied. Tourniquet was let down and the hand had immediate perfusion. The patient was then woken by the department of anesthesia and transferred to PACU in stable condition. Graham Eric D.O. Orthopedic Hand/Upper Extremity Surgeon
== END 2023-01-12 16:10 | disposition home or self-care (01) ==
LOC: OR 10:53
PROVIDERS: ATTEND Orthopaedic Surgery Hand Surgery
DX: S52.571P Other intraarticular fracture of lower end of right radius, subsequent encounter for closed fracture with malunion (principal); J45.909 Unspecified asthma, uncomplicated; K21.9 Gastro-esophageal reflux disease without esophagitis; M19.90 Unspecified osteoarthritis, unspecified site; F17.200 Nicotine dependence, unspecified, uncomplicated; Z86.59 Personal history of other mental and behavioral disorders; X58.XXXA Exposure to other specified factors, initial encounter; Z79.899 Other long term (current) drug therapy
CPT/HCPCS: 81025; 64415; 80053; 85025; 25350; C1713; J2250; J1100; J2405; J0690; J3010; J2795; J2704; J2001

== ENCOUNTER → 2023-08-05 | Outpatient (CLI) | payer BC, OTHER ==
--- NOTE | 2023-08-05 17:01 | CA ---
Transthoracic Echo Report Name: Lisa Jacques Age: 33 Gender: F : 1990 Exam Date: 08/05/2023 15:04 Exam Location: [place] Echo Ht (in): 63 Wt (lb): 140 Ordering Physician: Chinedu Solis MD Attending/Referring Phys: Irma MARROQUIN [employer] Worker Jody Morris RDCS Procedure CPT: Indications: R00.2 PALPITATIONS R55 SYNCOPE Cardiac Hx: Technical Quality: Good Contrast 1: Total Dose (mL): Contrast 2: Total Dose (mL): MEASUREMENTS (Male / Female) Normal Values 2D ECHO LV Diastolic Diameter PLAX 3.9 cm 4.2 - 5.9 / 3.9 - 5.3 cm LV Systolic Diameter PLAX 2.5 cm IVS Diastolic Thickness 0.8 cm 0.6 - 1.0 / 0.6 - 0.9 cm LVPW Diastolic Thickness 0.9 cm 0.6 - 1.0 / 0.6 - 0.9 cm LV Relative Wall Thickness 0.5 RV Internal Dim ED PLAX 2.7 cm LA Systolic Diameter LX 2.9 cm 3.0 - 4.0 / 2.7 - 3.8 cm LV Diastolic Volume MOD BP 55.6 cm??? 67 - 155 / 56 - 104 cm??? LV Systolic Volume MOD BP 18.2 cm??? 22 - 58 / 19 - 49 cm??? LV Ejection Fraction MOD BP 67.3 % >= 55 % LV Cardiac Index MOD BP 1637.1 cm???/min???m??? LV Diastolic Volume MOD 4C 53.7 cm??? LV Systolic Volume MOD 4C 19.1 cm??? LV Ejection Fraction MOD 4C 64.5 % LV Cardiac Index MOD 4C 1514.2 cm???/min???m??? LV Diastolic Length 4C 7.0 cm LV Systolic Length 4C 6.3 cm LV Diastolic Volume MOD 2C 56.7 cm??? LV Systolic Volume MOD 2C 17.4 cm??? LV Ejection Fraction MOD 2C 69.3 % LV Cardiac Index MOD 2C 1720.1 cm???/min???m??? LV Diastolic Length 2C 7.1 cm LV Systolic Length 2C 6.2 cm LA Volume 34.3 cm??? 18 - 58 / 22 - 52 cm??? LA Volume Index 20.3 cm???/m??? 16 - 28 cm???/m??? M-MODE IVS Diastolic Thickness MM 2.6 cm 0.6 - 1.0 / 0.6 - 0.9 cm Aortic Root Diameter MM 2.5 cm MV E Point Septal Separation 0.2 cm AV Cusp Separation MM 1.9 cm DOPPLER AV Peak Velocity 124.9 cm/s AV Peak Gradient 6.2 mmHg MV Area PHT 2.5 cm??? Mitral E Point Velocity 70.2 cm/s Mitral A Point Velocity 48.6 cm/s Mitral E to A Ratio 1.4 MV Deceleration Time 302.6 ms MV E' Velocity 14.1 cm/s Mitral E to MV E' Ratio 5.0 FINDINGS Left Ventricle Left ventricular ejection fraction is estimated at 60-65 %. Left ventricular cavity size normal. Left ventricular wall thickness normal. Normal left ventricular wall motion. Right Ventricle Normal right ventricular size. Unable to estimate the right ventricular systolic pressure. Right Atrium Normal right atrial size. Left Atrium Normal left atrial size. Mitral Valve Structurally normal mitral valve. No mitral stenosis, regurgitation or prolapse. Aortic Valve Trileaflet aortic valve. No aortic valve stenosis or regurgitation. Tricuspid Valve Structurally normal tricuspid valve. No tricuspid stenosis, regurgitation or prolapse. Pulmonic Valve Structurally normal pulmonic valve. No pulmonic regurgitation. Pericardium No pericardial effusion. Aorta Normal size aortic root and proximal ascending aorta. CONCLUSIONS Left ventricular ejection fraction 60-65% No mitral regurgitation No tricuspid regurgitation No pericardial effusion Previewed by: Dr. Alex Moreira DO (Electronically Signed) Final Date: 05 August 2023 17:00
== END | disposition home or self-care (01) ==
LOC: RADECHMAIN 14:56
PROVIDERS: ATTEND Family Medicine
DX: R00.2 Palpitations (principal); R55 Syncope and collapse
CPT/HCPCS: 93306

== ENCOUNTER → 2023-08-08 | Outpatient (CLI) | payer BC, OTHER ==
--- NOTE | 2023-08-08 12:05 | CA ---
Exercise Stress Test Report Name: Lisa Jacques Exam Date: 08/08/2023 11:04 Exam Location: [place] Stress Ht (in): 63 Wt (lb): 140 BSA: 1.66 Ordering Phys: Chinedu Solis MD Referring Phys: LORETTA Technologist: Edmundo Oates Age: 33 Gender: F : 1990 Procedure CPT: Indications: R00.2 PALPITATIONS R55 SYNCOPE ICD-10 Codes: Patient History: Medications: NONE Meds past 24 hrs: Pretest Chest Pain: STRESS TEST Julien Protocol Exercise Duration (min:sec): 10:[address] Depressions (mm): 0 Angina Score: 0 Smart Score: 10.3 Resting HR (bpm): 102 Peak HR (bpm): 178 Resting BP (mmHg): 119 / 80 Peak BP (mmHg): 171 / 72 MPHR: 185 Target HR: 157 % MPHR: 96 METS: 12.1 Total Dose: Peak Dose: Atropine: Double Product: 04783 BP Response: Normal Resting Blood Pressure - Appropriate Stress Termination: Reached target heart rate Stress Symptoms: No chest pain or symptoms Stress Summary: The patient's target heart rate was achieved ECG ANALYSIS Resting ECG: Sinus rhythm. Normal conduction. No arrhythmias. Normal repolarization. Stress ECG: No ECG evidence of ischemia with exercise. CONCLUSIONS Patient falls into low-risk group (DTS >= +5). This associates the patient with an annual CV mortality <= 0.5%. 1. Good exercise tolerance 2. Normal electrocardiographic response to exercise with no evidence of exercise induced ischemia Dr. Yolette Alfred MD (Electronically Signed) Final Date: 08 August 2023 12:05
== END | disposition home or self-care (01) ==
LOC: RADNMMAIN 10:28
PROVIDERS: ATTEND Family Medicine
DX: R00.2 Palpitations (principal); R55 Syncope and collapse
CPT/HCPCS: 93017

== ENCOUNTER → 2023-08-29 | Outpatient (CLI) | payer BC, OTHER ==
--- NOTE | 2023-09-03 05:37 | CE ---
CARDIAC ELECTROPHYSIOLOGY REPORT STUDY PERFORMED: Holter monitor. The patient was monitored for 24 hours. The baseline rhythm appeared to be sinus mechanism. No evidence of any atrial flutter or atrial fibrillation noted. No evidence of sinus pause or sinus arrest. PVCs and PACs were rare. No AV block noted. CONCLUSION: 1. This is a 24-hour Holter monitor. 2. The baseline rhythm appeared to be sinus mechanism. 3. No evidence of any atrial fibrillation or atrial flutter. 4. No evidence of sinus pause or sinus arrest. 5. Rare PACs and PVCs. 6. No evidence of advanced AV block noted. MMODL / IJN: [id number] /
== END | disposition home or self-care (01) ==
LOC: RADECHMAIN 07:57
PROVIDERS: ATTEND Family Medicine
DX: I49.3 Ventricular premature depolarization (principal); R00.2 Palpitations; I49.1 Atrial premature depolarization; R55 Syncope and collapse
CPT/HCPCS: 93225; 93226

== ENCOUNTER → 2024-05-07 | Outpatient (CLI) | payer OTHER ==
--- NOTE | 2024-06-09 05:22 | EM ---
EVENT MONITOR This is a 30-day event monitor. INDICATION: Palpitations. Underlying rhythm is sinus with an average heart rate of 77 beats per minute. Heart rate varied from 46 beats per minute to 130 beats per minute. There were no episodes of sustained ventricular or supraventricular tachyarrhythmias. There were no episodes of more than 2-second pauses. Occasional PVCs are found. CONCLUSIONS: This event monitor showed sinus rhythm with an average heart rate of 77 beats per minute with sinus bradycardia and rate premature ventricular contractions. MMODL / IJN: [id number] /
== END | disposition home or self-care (01) ==
LOC: RADECHMAIN 07:24
PROVIDERS: ATTEND Family Medicine
DX: R00.2 Palpitations (principal); I49.3 Ventricular premature depolarization
CPT/HCPCS: 93270